=== PATIENT | female | born 1965 ===

== ENCOUNTER 2022-03-19 | Outpatient (CLI) | payer OTHER | END 2022-03-19 00:15 | disposition home or self-care (01) | LOC: PPH VACUNA | PROVIDERS: ATTEND Emergency Medicine Pediatric Emergency Medicine | DX: Z23 Encounter for immunization (principal) ==

== ENCOUNTER 2023-02-09 13:03 | Outpatient (CLI) | payer OTHER | END 2023-02-09 13:05 | disposition home or self-care (01) | LOC: RAD 13:03 | DX: M99.01 Segmental and somatic dysfunction of cervical region (principal); M99.02 Segmental and somatic dysfunction of thoracic region; M99.03 Segmental and somatic dysfunction of lumbar region; M99.04 Segmental and somatic dysfunction of sacral region; M99.05 Segmental and somatic dysfunction of pelvic region ==